=== PATIENT | male | born 1985 ===

== ENCOUNTER → 2019-07-24 | Outpatient (CLI) | payer SELFPAY | LOC: LAB SHORT 11:50 → LAB 11:50 | DX: Z30.2 Encounter for sterilization (principal) ==

== ENCOUNTER → 2019-08-11 | Outpatient (CLI) | payer OTHER | END | disposition home or self-care (01) | LOC: OLS 12:15 → LAB SHORT 12:15 | DX: Z30.2 Encounter for sterilization (principal) ==